=== PATIENT | male | born 1980 | race Caucasian/White ===

== ENCOUNTER → 2022-02-26 | Outpatient (CLI) | payer OTHER | LOC: M LAB 15:42 | PROVIDERS: ATTEND Internal Medicine Gastroenterology | DX: R19.7 Diarrhea, unspecified (principal) ==

== ENCOUNTER → 2022-03-16 | Outpatient (REF) | payer OTHER ==
[~2022-03-16] MED LIST: CETI-24; ELID1CRE11 TOP; GABA-282; KETO2CR EXT; LOPE1CAP5; METH-1164; MONT10TA97
== END ==
LOC: M LAB REF 09:38
PROVIDERS: ATTEND Internal Medicine Gastroenterology
DX: R19.7 Diarrhea, unspecified (principal)

== ENCOUNTER 2022-03-23 11:52 | Day surgery (SDC) | payer OTHER ==
[~2022-03-23] VITALS: Ht 188 cm; Wt 114.5 kg
[~2022-03-23 11:52] MED LIST changes: -ELID1CRE11 TOP; -KETO2CR EXT; +NS 1,000 ML IV ONE
[2022-03-23] MEDS ORDERED: ELID1CRE11 TOP (12:33)
[2022-03-23] MEDS ORDERED: KETO2CR EXT (12:33)
[2022-03-23] MEDS ORDERED: propofoL 200 MG/20 ML VIAL As Ordered ONE (15:03)
[2022-03-23] MEDS ORDERED: LIDOCAINE 2% 100MG/5ML SDV (FOR ANES.) As Ordered ONE (15:03)
[2022-03-23 15:16] VITALS: BP 100/57
== END 2022-03-23 15:18 | disposition home or self-care (01) ==
LOC: M OPP 11:52
PROVIDERS: ATTEND Internal Medicine Gastroenterology
DX: Z12.11 Encounter for screening for malignant neoplasm of colon (principal); K64.0 First degree hemorrhoids; K63.89 Other specified diseases of intestine; F17.200 Nicotine dependence, unspecified, uncomplicated; F41.9 Anxiety disorder, unspecified; Z79.52 Long term (current) use of systemic steroids; Z79.899 Other long term (current) drug therapy

== ENCOUNTER → 2022-07-14 | Outpatient (CLI) | payer OTHER ==
[~2022-07-14] MED LIST changes: +ELID1CRE11 TOP; +KETO2CR EXT; -NS 1,000 ML IV ONE; +PROHANCE 279.3MG/ML 15ML VIAL ONE; +PROHANCE 279.3MG/ML 5ML VIAL ONE
== END ==
LOC: M PLAIMG 11:55
PROVIDERS: ATTEND Pain Medicine Interventional Pain Medicine
DX: M96.1 Postlaminectomy syndrome, not elsewhere classified (principal)
CPT/HCPCS: 72156; A9576

== ENCOUNTER → 2022-11-06 | Outpatient (CLI) | payer OTHER ==
[~2022-11-06] MED LIST changes: -PROHANCE 279.3MG/ML 15ML VIAL ONE; -PROHANCE 279.3MG/ML 5ML VIAL ONE
== END ==
LOC: M PLAIMG 09:22
PROVIDERS: ATTEND Nurse Practitioner Family
DX: M25.519 Pain in unspecified shoulder (principal); M25.559 Pain in unspecified hip

== ENCOUNTER 2022-11-30 15:28 | Emergency (ER) | payer OTHER ==
[~2022-11-30] VITALS: Ht 185.4 cm; Wt 122.0 kg
[2022-11-30] MEDS ORDERED: LOPE1CAP5 (15:43)
[2022-11-30] MEDS ORDERED: DOXYCYCLINE HYCLATE 100MG TABLET PO ONE (19:45)
[2022-11-30] MEDS ORDERED: DOXY-444 PO (19:53)
[2022-11-30 20:00] VITALS: BP 132/82
== END 2022-11-30 20:30 | disposition home or self-care (01) ==
LOC: M ED 15:28
DX: S30.861A Insect bite (nonvenomous) of abdominal wall, initial encounter (principal); W57.XXXA Bitten or stung by nonvenomous insect and other nonvenomous arthropods, initial encounter; Y92.89 Other specified places as the place of occurrence of the external cause; Y93.89 Activity, other specified; Y99.8 Other external cause status; H81.4 Vertigo of central origin; G43.909 Migraine, unspecified, not intractable, without status migrainosus; M25.50 Pain in unspecified joint; F17.210 Nicotine dependence, cigarettes, uncomplicated